=== PATIENT | female | born 1980 ===

== ENCOUNTER 2019-03-29 09:01 | Outpatient (CLI) | payer OTHER ==
--- NOTE | 2019-03-29 10:33 | Ultrasound Report ---
TRANSABDOMINAL PELVIC AND TRANSVAGINAL ULTRASOUND HISTORY: ABNORMAL CERVIX FINDING. The cervix felt hard clinically on [employer] exam. COMPARISON: None. TECHNIQUE: Routine transabdominal and transvaginal pelvic ultrasound performed. FINDINGS: TRANSABDOMINAL PELVIC ULTRASOUND: Uterus: Enlarged uterus measuring 11.0 x 7.0 x 8.2 cm. Abnormal uterine contour. Endometrium: Not imaged. Right Ovary: Not seen. Left Ovary: Enlarged with small follicles. Ovary measures 5.4 x 3.2 x 3.9 cm. Additional findings: Transvaginal exam was performed for better delineation of the endometrium and ov sofia. TRANSVAGINAL PELVIC ULTRASOUND: Uterus: Enlarged. Numerous intramural and subserosal fibroids. The largest fibroid is located posteri or in the uterine body in a subserosal location and measures 3.6 x 2.7 x 4.3 cm. A right intramural f ibroid in the uterine body measures 3.6 x 2.6 x 2.9 cm. No cervical fibroid identified. Endometrium: Normal thickness measuring 9.5 mm. Right Ovary: Normal size, blood flow and appearance measuring 2.5 x 1.2 x 2.3 cm. Left Ovary: Normal size, blood flow and appearance measuring 3.6 x 2.2 x 3.0 cm. Dominant follicle me asures 1.8 cm. Additional findings: Minimal free fluid. IMPRESSION 1. Enlarged fibroid uterus with a dominant 4.3 cm fibroid. 2. No cervical mass identified. 3. Normal ovaries. Signer Name: David Rodriguez MD Signed: 03/29/2019 10:28 AM Workstation Name: [id number]
== END 2019-03-29 09:02 | disposition home or self-care (01) ==
LOC: SPVWC 09:01
PROVIDERS: ATTEND Family Medicine
DX: D25.2 Subserosal leiomyoma of uterus (principal)
CPT/HCPCS: 76830; 76856